=== PATIENT | male | born 1975 | race Hispanic/Latino ===

== ENCOUNTER 2018-02-04 07:22 | Emergency (ER) | payer BC ==
[2018-02-04] MEDS ORDERED: ONDANSETRON 4 MG/2 ML VIAL ONE (07:54)
[2018-02-04] MEDS ORDERED: NA CHLORIDE 0.9% 1,000 ML ONE (07:54)
[2018-02-04] MEDS ORDERED: MORPHINE 4 MG/ML SYR ONE (07:54)
[2018-02-04] MEDS ORDERED: FAMOTIDINE 20 MG/2 ML VIAL IV ONE (07:54)
[2018-02-04 08:00] LABS: Urine Bacteria <20 /HPF (NONE SEEN); Urine Culture Reflex Order NOT NEEDED; Urine RBC <5 /HPF (NONE SEEN)
[2018-02-04 08:13] LABS: Bicarbonate 28 mEq/L (21-31); Glucose Level 95 mg/dL (65-120); Lipase 25 U/L (22-51); Potassium 3.6 mEq/L (3.6-5.0); Sodium Level 142 mEq/L (135-145)
[2018-02-04 08:17] LABS: Absolute Lymphocytes (CBC) 2.1 K/uL (0.7-4.9); Absolute Monocytes 0.4 K/uL (0.1-1.3); Absolute Neutrophil 4.5 K/uL (1.8-8.0); Basophils % 0.4 % (0-1.3); Eosinophils % 1.4 % (0-4.4); Hematocrit 46.1 % (39.6-49.0); Lymphocytes % 29.5 % (15.3-44.8); MCH 30.8 pg (27.0-35.0); MCV 93.8 fL (80-100); MPV 9.6 fL (7.6-11.3); Monocytes % 5.9 % (3.3-12.3); RBC Red Blood Cell Count 4.92 M/uL (4.33-5.43)
[2018-02-04 08:19] LABS: ALT/SGPT 62 IU/L (10-60); AST/SGOT 40 IU/L (10-42); Albumin 4.4 g/dL (3.2-5.5); Alkaline Phosphatase 65 IU/L (42-121); Amylase Level 87 U/L (28-100); BUN Blood Urea Nitrogen 17 mg/dL (6-20); Bilirubin Direct 0.1 mg/dL (0-0.2); Bilirubin Total 0.7 mg/dL (0.3-1.2); Protein, Total 7.6 g/dL (6.0-8.3)
[2018-02-04] MEDS ORDERED: KETOROLAC 30 MG/ML INJ ONE (09:03)
[2018-02-04] MEDS ORDERED: CYCLOBENZAPRINE 10 MG TAB ONE (09:03)
--- NOTE | 2018-02-04 09:36 | RAD REPORT ---
EXAM DESCRIPTION: CT - Abdomen Pelvis W Contrast - 02/04/2018 9:23 am CLINICAL HISTORY: Back pain, chest pain, abdominal pain COMPARISON: June 2013 CT imaging, gallbladder ultrasound same date TECHNIQUE: Biphasic, helical CT imaging of the abdomen and pelvis was performed following 100 ml non -ionic IV contrast. No oral contrast administered. All CT scans are performed using dose optimization technique as appropriate and may include automated exposure control or mA/KV adjustment according to patient size. FINDINGS: No suspicious findings in the lung bases. The liver, spleen, and pancreas show no focal findings. Liver shows diffuse fatty infiltration patter n. No gallbladder or biliary tree abnormality. Gallstones can be occult; however, same-day ultrasound showed no gallstones. Symmetric renal function is seen with no hydronephrosis or suspicious renal mass. No pyelonephritis o r acute renal parenchymal process identifiable. No adrenal gland abnormalities. No urinary bladder ab normality. No dilated bowel loops or bowel wall thickening. Appendix is normal. No free air, free fluid or infla mmatory stranding. No mass or bulky lymphadenopathy. No omental thickening. Small bilateral fat fill ed inguinal hernias are present. No suspicious bony findings. IMPRESSION: Diffuse fatty infiltration of the liver with no focal liver lesion identifiable. No acute or GI process identifiable. No suspicious change from prior imaging.
--- NOTE | 2018-02-04 10:44 | ER ---
Nurse's Notes [facility] Name: Tapan Jaime Jr Age: 42 yrs Sex: Male : 1975 Arrival Date: 02/04/2018 Time: 07:25 Bed 19 Private MD: None, None Diagnosis: Upper abdominal pain, unspecified Presentation: 02/04 07:39 Presenting complaint: Patient states: twisted his back 3 days ago, has had pain under iw ribs on right side, RUQ tender to touch, denies vomiting, reports diarrhea, pain described as cramping. Transition of care: patient was not received from another setting of care. Onset of symptoms was February 01, 2018. Risk Assessment: Do you want to hurt yourself or someone else? Patient reports no desire to harm self or others. Initial Sepsis Screen: Does the patient meet any 2 criteria? No. Patient's initial sepsis screen is negative. Does the patient have a suspected source of infection? No. Patient's initial sepsis screen is negative. Care prior to arrival: None. 07:39 Method Of Arrival: Ambulatory iw 07:39 Acuity: SANDEE 3 iw Historical: - Allergies: 07:35 NKDA; tw2 - PMHx: 07:35 Headaches; tw2 - Immunization history:: Adult Immunizations not up to date. - Social history:: Smoking status: Patient/guardian denies using tobacco. - Ebola Screening: : Patient denies travel to an Ebola-affected area in the 21 days before illness onset. Screenin:33 Abuse screen: Denies threats or abuse. Nutritional screening: No deficits noted. tw2 Tuberculosis screening: No symptoms or risk factors identified. Fall Risk None identified. Assessment: 07:45 General: Appears in no apparent distress. uncomfortable, Behavior is cooperative. Pain: em Complains of pain in right upper quadrant Pain radiates to right lateral anterior chest Pain currently is 10 out of 10 on a pain scale. Pain began 2-3 days ago. Neuro: Level of Consciousness is awake, alert, obeys commands, Oriented to person, place, time, situation. Cardiovascular: Capillary refill < 3 seconds Patient's skin is warm and dry. Respiratory: Airway is patent Respiratory effort is even, unlabored, Respiratory pattern is regular, symmetrical. GI: Abdomen is obese, Bowel sounds present X 4 quads. Abd is soft X 4 quads Abdomen is tender to palpation in right upper quadrant Reports diarrhea, Patient currently denies nausea, vomiting. : Urine is clear. EENT: No signs and/or symptoms were reported regarding the EENT system. Derm: Skin is intact, Skin is pink, warm \T\ dry. Musculoskeletal: Range of motion: intact in all extremities. 08:10 Reassessment: Patient appears in no apparent distress at this time. I agree with above iw assessment by César Segovia LVN. 08:58 Reassessment: Patient appears in no apparent distress at this time. Patient and/or em family updated on plan of care and expected duration. Pain level reassessed. Patient is alert, oriented x 3, equal unlabored respirations, skin warm/dry/pink. 10:00 Reassessment: Patient appears in no apparent distress at this time. Patient and/or em family updated on plan of care and expected duration. Pain level reassessed. Patient is alert, oriented x 3, equal unlabored respirations, skin warm/dry/pink. Patient states feeling better. 11:00 Reassessment: Patient appears in no apparent distress at this time. Patient and/or em family updated on plan of care and expected duration. Pain level reassessed. Patient is alert, oriented x 3, equal unlabored respirations, skin warm/dry/pink. Patient states feeling better. Patient states symptoms have improved. Vital Signs: 07:43 BP 141 / 71; Pulse 67; Resp 18 S; Temp 97.5; Pulse Ox 98% on R/A; Weight 145.15 kg; iw Height 5 ft. 10 in. (177.80 cm); Pain 10/10; 08:09 BP 139 / 73; Pulse 60; Resp 16; Pulse Ox 98% on R/A; em 08:58 BP 139 / 73; Pulse 66; Resp 16; Pulse Ox 96% on R/A; Pain 7/10; em 10:00 BP 121 / 72; Pulse 65; Resp 17; Pulse Ox 97% on R/A; Pain 5/10; em 11:00 BP 116 / 76; Pulse 79; Resp 16; Pulse Ox 99% on R/A; Pain 3/10; em 07:43 Body Mass Index 45.91 (145.15 kg, 177.80 cm) iw ED Course: 07:25 Patient arrived in ED. mr 07:26 None, None is Private Physician. mr 07:32 [facility] cp 07:32 Brendan Ponce MD is Attending Physician. cp 07:34 César Segovia LVN is Primary Nurse. em 07:34 Arm band placed on. tw2 07:34 Placed in gown. Bed in low position. Pulse ox on. NIBP on. tw2 07:42 Triage completed. iw 07:51 No provider procedures requiring assistance completed. Initial lab(s) drawn, by me, em sent to lab. Inserted saline lock: 20 gauge in right antecubital area, using aseptic technique. Blood collected. 08:41 Ultrasound completed. Patient tolerated well. Notified LEASE ADMINISTRATION ANALYST/RAFFY christina. sg3 08:59 Abdomen Exam Limited In Process Unspecified. EDMS 09:23 CT Abd/Pelvis - W/Contrast: no oral contrast In Process Unspecified. EDMS 09:23 CT completed. Patient tolerated procedure well. Patient moved back from CT. cw1 11:20 IV discontinued, intact, bleeding controlled, No redness/swelling at site. Pressure em dressing applied. Administered Medications: 08:03 Drug: Zofran 4 mg Route: IVP; Site: right antecubital; iw 08:57 Follow up: Response: No adverse reaction em 08:03 Drug: Pepcid 20 mg Route: IVP; Site: right antecubital; iw 08:57 Follow up: Response: No adverse reaction em 08:03 Drug: NS 0.9% 1000 ml Route: IV; Rate: 1 bolus; Site: right antecubital; iw 11:22 Follow up: IV Status: Completed infusion; IV Intake: 1000ml em 08:04 Drug: morphine 4 mg Route: IVP; Site: right antecubital; iw 08:57 Follow up: Response: No adverse reaction; Pain is decreased em 09:08 Drug: Flexeril 10 mg Route: PO; iw 10:36 Follow up: Response: No adverse reaction; Pain is decreased em 09:09 Drug: TORadol 30 mg Route: IVP; Site: right antecubital; iw 10:36 Follow up: Response: No adverse reaction em Intake: 11:22 IV: 1000ml; Total: 1000ml. em Outcome: 10:43 Discharge ordered by . cp 11:21 Discharged to home ambulatory. em 11:21 Condition: good 11:21 Discharge instructions given to patient, Instructed on discharge instructions, follow up and referral plans. no drinking with medication, no driving heavy equipment, medication usage. 11:23 Patient left the ED. em Signatures: Dispatcher [employer] Amarilis Cárdenas mr Segovia, César, TEACHER PUBLIC HEALTH TEACHER PUBLIC HEALTH em Asiya Lawson, RN RN jackeline Luo, Sandra cw1 Jeramie Best PA PA cp Wise, Tara, RN RN 2 Lolita Garland 3
--- NOTE | 2018-02-04 10:44 | EDPHYS ---
Physician Documentation [facility] Name: Tapan Jaime Jr Age: 42 yrs Sex: Male : 1975 Arrival Date: 02/04/2018 Time: 07:25 Bed 19 Private MD: None, None ED Physician Brendan Ponce HPI: 02/04 07:50 This 42 yrs old Male presents to ER via Ambulatory with complaints of cp Abdominal Pain. 07:50 The patient presents with abdominal pain in the right upper quadrant. Onset: The cp symptoms/episode began/occurred 3 day(s) ago. 07:50 Associated signs and symptoms: Pertinent positives: diarrhea, nausea, Pertinent cp negatives: chest pain, constipation, shortness of breath, testicular pain, vomiting. The symptoms are described as cramping. 07:50 Patient reports pain started while at work 3 days ago. Patient reports he was working cp above his head when he twisted and turned, started having pain in right lower rib area. Historical: - Allergies: 07:35 NKDA; tw2 - PMHx: 07:35 Headaches; tw2 - Immunization history:: Adult Immunizations not up to date. - Social history:: Smoking status: Patient/guardian denies using tobacco. - Ebola Screening: : Patient denies travel to an Ebola-affected area in the 21 days before illness onset. ROS: 08:00 Eyes: Negative for injury, pain, redness, and discharge. cp 08:00 Constitutional: Negative for body aches, chills, fever, poor PO intake. 08:00 ENT: Negative for drainage from ear(s), ear pain, sore throat, difficulty swallowing, cp difficulty handling secretions. 08:00 Cardiovascular: Negative for chest pain, edema, palpitations. 08:00 Respiratory: Negative for cough, shortness of breath, wheezing. 08:00 Abdomen/GI: Positive for abdominal pain, of the right upper quadrant. 08:00 Back: Positive for flank pain, on the right. cp 08:00 : Negative for urinary symptoms. cp 08:00 MS/extremity: Negative for paresthesias, tenderness. 08:00 Skin: Negative for cellulitis, rash. 08:00 Neuro: Negative for altered mental status, headache, weakness. 08:00 All other systems are negative. Exam: 08:15 Constitutional: The patient appears in no acute distress, alert, awake, cp non-diaphoretic, non-toxic, well developed, well nourished, obese. 08:15 Head/Face: Normocephalic, atraumatic. cp 08:15 Eyes: Pupils equal round and reactive to light, extra-ocular motions intact. Lids and cp lashes normal. Conjunctiva and sclera are non-icteric and not injected. Cornea within normal limits. Periorbital areas with no swelling, redness, or edema. ENT: Nares patent. No nasal discharge, no septal abnormalities noted. Tympanic membranes are normal and external auditory canals are clear. Oropharynx with no redness, swelling, or masses, exudates, or evidence of obstruction, uvula midline. Mucous membranes moist. Neck: Trachea midline, no thyromegaly or masses palpated, and no cervical lymphadenopathy. Supple, full range of motion without nuchal rigidity, or vertebral point tenderness. No Meningismus. 08:15 Chest/axilla: Inspection: normal, Palpation: crepitus, is not appreciated, tenderness, that is moderate, of the right lower lateral rib area, that partially reproduces the patient's complaints. 08:15 Cardiovascular: Rate: normal, Rhythm: regular, Edema: is not appreciated, JVD: is not appreciated. 08:15 Respiratory: the patient does not display signs of respiratory distress, Respirations: normal, no use of accessory muscles, no retractions, no splinting, no tachypnea, labored breathing, is not present, Breath sounds: are clear throughout, no decreased breath sounds, no stridor, no wheezing. 08:15 Abdomen/GI: Inspection: obese Bowel sounds: active, all quadrants, Palpation: soft, in all quadrants, moderate abdominal tenderness, in the right upper quadrant, rebound tenderness, is not appreciated, voluntary guarding, is elicited in the right upper quadrant. 08:15 Back: pain, that is mild, of the right mid back, ROM is normal, vertebral tenderness, is not appreciated. 08:15 Skin: cellulitis, is not appreciated, no rash present. cp 08:15 Neuro: Orientation: to person, place \T\ time. Mentation: lucid, able to follow commands, Cerebellar function: is grossly normal, Motor: moves all fours, strength is normal, Sensation: no obvious gross deficits, Gait: is steady. Vital Signs: 07:43 BP 141 / 71; Pulse 67; Resp 18 S; Temp 97.5; Pulse Ox 98% on R/A; Weight 145.15 kg; iw Height 5 ft. 10 in. (177.80 cm); Pain 10/10; 08:09 BP 139 / 73; Pulse 60; Resp 16; Pulse Ox 98% on R/A; em 08:58 BP 139 / 73; Pulse 66; Resp 16; Pulse Ox 96% on R/A; Pain 7/10; em 10:00 BP 121 / 72; Pulse 65; Resp 17; Pulse Ox 97% on R/A; Pain 5/10; em 11:00 BP 116 / 76; Pulse 79; Resp 16; Pulse Ox 99% on R/A; Pain 3/10; em 07:43 Body Mass Index 45.91 (145.15 kg, 177.80 cm) iw MDM: 07:33 Patient medically screened. cp 08:00 Differential diagnosis: cholecystitis, Cholelithiasis, pancreatitis, Pyelonephritis, cp Ureterolithiasis, urinary tract infection. 10:40 Data reviewed: vital signs, nurses notes, lab test result(s), radiologic studies, CT cp scan, ultrasound. Counseling: I had a detailed discussion with the patient and/or guardian regarding: the historical points, exam findings, and any diagnostic results supporting the discharge/admit diagnosis, lab results, radiology results, the need for outpatient follow up, a family practitioner, to return to the emergency department if symptoms worsen or persist or if there are any questions or concerns that arise at home. 02/04 07:42 Order name: Amylase, Serum; Complete Time: 08:55 cp 02/04 07:42 Order name: Basic Metabolic Panel; Complete Time: 08:55 cp 02/04 07:42 Order name: CBC with Diff; Complete Time: 08:55 cp 02/04 07:42 Order name: Creatinine for Radiology; Complete Time: 08:55 cp 02/04 07:42 Order name: Hepatic Function; Complete Time: 08:55 cp 02/04 10:26 Interpretation: Normal except: SGPT 62. cp 02/04 07:42 Order name: Lipase; Complete Time: 08:55 cp 02/04 07:42 Order name: Urine Microscopic Only; Complete Time: 08:55 cp 02/04 08:21 Order name: Abdomen Exam Limited EDMS 02/04 08:56 Order name: CT Abd/Pelvis - W/Contrast: no oral contrast; Complete Time: 10:24 cp 02/04 10:26 Interpretation: Report reviewed. 02/04 07:42 Order name: IV Saline Lock; Complete Time: 07:48 cp 02/04 07:42 Order name: Labs collected and sent; Complete Time: 07:48 cp 02/04 07:42 Order name: Urine Dipstick-Ancillary (obtain specimen); Complete Time: 07:48 cp 02/04 07:42 Order name: NPO; Complete Time: 07:48 cp Administered Medications: 08:03 Drug: Zofran 4 mg Route: IVP; Site: right antecubital; iw 08:57 Follow up: Response: No adverse reaction em 08:03 Drug: Pepcid 20 mg Route: IVP; Site: right antecubital; iw 08:57 Follow up: Response: No adverse reaction em 08:03 Drug: NS 0.9% 1000 ml Route: IV; Rate: 1 bolus; Site: right antecubital; iw 11:22 Follow up: IV Status: Completed infusion; IV Intake: 1000ml em 08:04 Drug: morphine 4 mg Route: IVP; Site: right antecubital; iw 08:57 Follow up: Response: No adverse reaction; Pain is decreased em 09:08 Drug: Flexeril 10 mg Route: PO; iw 10:36 Follow up: Response: No adverse reaction; Pain is decreased em 09:09 Drug: TORadol 30 mg Route: IVP; Site: right antecubital; iw 10:36 Follow up: Response: No adverse reaction em Disposition: 02/04/18 10:43 Discharged to Home. Impression: Upper abdominal pain, unspecified. - Condition is Stable. - Discharge Instructions: Abdominal Pain, Adult, Musculoskeletal Pain. - Prescriptions for Cyclobenzaprine 10 mg Oral Tablet - take 1 tablet by ORAL route every 8 hours As needed; 20 tablet. Naprosyn 500 mg Oral Tablet - take 1 tablet by ORAL route 2 times per day take with food; 30 tablet. - Work release form, Medication Reconciliation Form, Thank You Letter, Antibiotic Education, Prescription Opioid Use form. - Follow up: Private Physician; When: 2 - 3 days; Reason: Recheck today's complaints. - Problem is new. - Symptoms have improved. Addendum: 02/12/2018 11:51 Co-signature as Attending Physician, Brendan Ponce MD Available for consultation at p s1 all times. . Signatures: Dispatcher [employer] EDVT César Segovia, CONSULTING MARINE ENGINEER CONSULTING MARINE ENGINEER em Asiya Lawson, RN RN iw Jeramie Best PA PA cp Wise, Tara, RN RN tw2 Brendan Ponce MD MD ps1 Corrections: (The following items were deleted from the chart) 02/04 07:58 07:50 Associated signs and symptoms: Pertinent positives: nausea, Pertinent negatives: cp chest pain, constipation, diarrhea, fever, hematuria, testicular pain, vomiting, cp 08:21 07:42 Abdomen Complete+US.RAD.BRZ ordered. EDVT EDVT 10:41 07:15 Constitutional: The patient appears in no acute distress, alert, awake, cp non-diaphoretic, non-toxic, well developed, well nourished, obese, uncomfortable, cp 10:41 07:15 Head/Face: Normocephalic, atraumatic. Eyes: Pupils equal round and reactive to cp light, extra-ocular motions intact. Lids and lashes normal. Conjunctiva and sclera are non-icteric and not injected. Cornea within normal limits. Periorbital areas with no swelling, redness, or edema. ENT: Nares patent. No nasal discharge, no septal abnormalities noted. Tympanic membranes are normal and external auditory canals are clear. Oropharynx with no redness, swelling, or masses, exudates, or evidence of obstruction, uvula midline. Mucous membranes moist. Chest/axilla: Normal chest wall appearance and motion. Nontender with no deformity. No lesions are appreciated. cp 10:41 07:15 Cardiovascular: Rate: normal, Rhythm: regular, Edema: is not appreciated, JVD: is cp not appreciated, cp 10:41 07:15 Respiratory: the patient does not display signs of respiratory distress, cp Respirations: normal, no use of accessory muscles, no retractions, no splinting, no tachypnea, Breath sounds: are clear throughout, no decreased breath sounds, no stridor, no wheezing, cp 10:41 07:15 Abdomen/GI: Inspection: obese Bowel sounds: active, all quadrants, Palpation: cp soft, in all quadrants, moderate abdominal tenderness, in the right upper quadrant, rebound tenderness, is not appreciated, voluntary guarding, is elicited in the right upper quadrant, cp 10:41 07:15 Back: pain, that is mild, of the right mid back, cp cp 10:41 07:15 Skin: cellulitis, is not appreciated, no rash present. cp cp 11:23 10:43 02/04/2018 10:43 Discharged to Home. Impression: Upper abdominal pain, em unspecified. Condition is Stable. Forms are Medication Reconciliation Form, Thank You Letter, Antibiotic Education, Prescription Opioid Use. Follow up: Private Physician; When: 2 - 3 days; Reason: Recheck today's complaints. Problem is new. Symptoms have improved. cp
[2018-02-04 11:28] VITALS: TEMP 97.5
--- NOTE | 2018-02-04 11:28 | RAD REPORT ---
EXAM DESCRIPTION: US - Abdomen Exam Limited - 02/04/2018 8:59 am CLINICAL HISTORY: Right upper quadrant pain COMPARISON: None. FINDINGS: No gallstones, sludge or other abnormalities within the gallbladder lumen. There is no wal l thickening or pericholecystic fluid. Gallbladder assessment is limited due to large body habitus an d liver fatty infiltration pattern. No common duct stone or biliary tree dilatation identified. IMPRESSION: Normal gallbladder and biliary tree ultrasound. Exam is limited due to large body habit us and fatty infiltration of the liver.
[2018-02-04 11:32] VITALS: BP 116/76; O2SAT 99
== END 2018-02-04 11:23 | disposition home or self-care (01) ==
LOC: ER 07:22
DX: R10.11 Right upper quadrant pain (principal)
CPT/HCPCS: 36415; 74177; 76705; 80048; 80076; 81015; 82150; 83690; 85025; 96361; 96374; 96375; 99284; J2405; J7030; Q9967

== ENCOUNTER 2018-06-07 10:56 | Emergency (ER) | payer BC ==
--- NOTE | 2018-06-07 12:02 | EDPHYS ---
Physician Documentation [facility] Name: Tapan Jaime Jr Age: 42 yrs Sex: Male : 1975 Arrival Date: 06/07/2018 Time: 10:58 Bed 28 Private MD: None, None ED Physician Blaze Harris HPI: 06/07 11:45 This 42 yrs old Male presents to ER via Ambulatory with complaints of Sore pm1 throat. 11:45 The patient presents with sore throat. The patient describes throat pain as constant, pm1 raw, scratchy. 11:45 Onset: The symptoms/episode began/occurred 3 day(s) ago. Severity of symptoms: in the pm1 emergency department the symptoms are actually worse. Modifying factors: The symptoms are alleviated by nothing, the symptoms are aggravated by swallowing, Patient's oral intake status: good. Associated signs and symptoms: Pertinent positives: fever, flu-like symptoms, myalgias, Pertinent negatives cough, shortness of breath, chest pain. The patient has experienced similar episodes in the past, multiple times. Historical: - Allergies: 11:02 NKDA; aj1 - Home Meds: 11:02 Pepcid 20 mg Oral tab 1 tab once daily [Active]; aj1 - PMHx: 11:02 Headaches; aj1 - PSHx: 11:02 None; aj1 - Immunization history:: Flu vaccine is not up to date. - Social history:: Smoking status: Patient/guardian denies using tobacco. - Ebola Screening: : Patient denies travel to an Ebola-affected area in the 21 days before illness onset. ROS: 11:45 Eyes: Negative for injury, pain, redness, and discharge. pm1 11:45 Neck: Negative for injury, pain, and swelling, Cardiovascular: Negative for chest pain, palpitations, and edema, Respiratory: Negative for shortness of breath, cough, wheezing, and pleuritic chest pain, Abdomen/GI: Negative for abdominal pain, nausea, vomiting, diarrhea, and constipation, Back: Negative for injury and pain, MS/Extremity: Negative for injury and deformity, Skin: Negative for injury, rash, and discoloration, Neuro: Negative for headache, weakness, numbness, tingling, and seizure. 11:45 Constitutional: Positive for body aches, fever, Negative for poor PO intake. 11:45 ENT: Positive for sore throat, Negative for drainage from ear(s), ear pain. Exam: 11:45 Constitutional: This is a well developed, well nourished patient who is awake, alert, pm1 and in no acute distress. Head/Face: Normocephalic, atraumatic. Eyes: Pupils equal round and reactive to light, extra-ocular motions intact. Lids and lashes normal. Conjunctiva and sclera are non-icteric and not injected. Cornea within normal limits. Periorbital areas with no swelling, redness, or edema. 11:45 Neck: Trachea midline, no thyromegaly or masses palpated, and no cervical lymphadenopathy. Supple, full range of motion without nuchal rigidity, or vertebral point tenderness. No Meningismus. Chest/axilla: Normal chest wall appearance and motion. Nontender with no deformity. No lesions are appreciated. Cardiovascular: Regular rate and rhythm with a normal S1 and S2. No gallops, murmurs, or rubs. Normal PMI, no JVD. No pulse deficits. Respiratory: Lungs have equal breath sounds bilaterally, clear to auscultation and percussion. No rales, rhonchi or wheezes noted. No increased work of breathing, no retractions or nasal flaring. Abdomen/GI: Soft, non-tender, with normal bowel sounds. No distension or tympany. No guarding or rebound. No evidence of tenderness throughout. Back: No spinal tenderness. No costovertebral tenderness. Full range of motion. Skin: Warm, dry with normal turgor. Normal color with no rashes, no lesions, and no evidence of cellulitis. MS/ Extremity: Pulses equal, no cyanosis. Neurovascular intact. Full, normal range of motion. 11:45 ENT: External ear(s): are unremarkable, Ear canal(s): are normal, TM's: are normal, Nose: is normal, Mouth: is normal, Posterior pharynx: Tonsils: bilaterally enlarged, with erythema, no exudate, no ulcerations, peritonsillar mass, is not appreciated, pooling of secretions, is not appreciated. 11:45 Neuro: Orientation: is normal, Motor: is normal, moves all fours. Vital Signs: 11:02 BP 170 / 82; Pulse 86; Resp 18; Temp 98.9(TE); Pulse Ox 98% on R/A; Weight 136.08 kg aj1 (R); Height 6 ft. 0 in. (182.88 cm) (R); Pain 03/20; 11:02 Body Mass Index 40.69 (136.08 kg, 182.88 cm) aj1 MDM: 11:45 Patient medically screened. pm1 12:01 Data reviewed: vital signs. Data interpreted: Pulse oximetry: on room air is 98 %. pm1 Interpretation: normal. Counseling: I had a detailed discussion with the patient and/or guardian regarding: the historical points, exam findings, and any diagnostic results supporting the discharge/admit diagnosis, lab results, the need for outpatient follow up, to return to the emergency department if symptoms worsen or persist or if there are any questions or concerns that arise at home. 06/07 11:04 Order name: Flu; Complete Time: 11:45 aj1 06/07 11:04 Order name: Strep; Complete Time: :45 aj1 Administered Medications: No medications were administered Disposition: 12:34 Co-signature as Attending Physician, Blaze Harris MD. rn Disposition: 06/07/18 12:01 Discharged to Home. Impression: Streptococcal pharyngitis. - Condition is Stable. - Discharge Instructions: Strep Throat. - Prescriptions for Amoxicillin 500 mg Oral Capsule - take 1 capsule by ORAL route every 8 hours for 10 days; 30 tablet. - Work release form, Medication Reconciliation Form, Thank You Letter, Antibiotic Education, Prescription Opioid Use form. - Follow up: Emergency Department; When: As needed; Reason: Worsening of condition. Follow up: Private Physician; When: 2 - 3 days; Reason: Recheck today's complaints, Continuance of care, Re-evaluation by your physician. - Problem is new. - Symptoms have improved. Signatures: Dispatcher [employer] Esthela Simmons RN RN aj1 Asiya Lawson RN RN iw Nieto, Roman, MD MD rn Marinas, Patrick, SE[employer] PRESCHO[employer] ASSISTANT TEACHER pm1 Corrections: (The following items were deleted from the chart) 12:10 12:01 06/07/2018 12:01 Discharged to Home. Impression: Streptococcal pharyngitis. iw Condition is Stable. Forms are Medication Reconciliation Form, Thank You Letter, Antibiotic Education, Prescription Opioid Use. Follow up: Emergency Department; When: As needed; Reason: Worsening of condition. Follow up: Private Physician; When: 2 - 3 days; Reason: Recheck today's complaints, Continuance of care, Re-evaluation by your physician. Problem is new. Symptoms have improved. pm1
--- NOTE | 2018-06-07 12:02 | ER ---
Nurse's Notes [facility] Name: Tapan Jaime Jr Age: 42 yrs Sex: Male : 1975 Arrival Date: 06/07/2018 Time: 10:58 Bed 28 Private MD: None, None Diagnosis: Streptococcal pharyngitis Presentation: 06/07 11:00 Presenting complaint: Patient states: Joint aches, headache, congestion, cough, and aj1 sore throat for the past 3 days. Transition of care: patient was not received from another setting of care. Onset of symptoms was June 04, 2018. Risk Assessment: Do you want to hurt yourself or someone else? Patient reports no desire to harm self or others. Initial Sepsis Screen: Does the patient meet any 2 criteria? No. Patient's initial sepsis screen is negative. Does the patient have a suspected source of infection? No. Patient's initial sepsis screen is negative. Care prior to arrival: None. 11:00 Method Of Arrival: Ambulatory aj1 11:00 Acuity: SANDEE 4 aj1 Triage Assessment: 11:02 General: Appears in no apparent distress. uncomfortable, Behavior is calm, cooperative, aj1 appropriate for age. Pain: Complains of pain in pain in all joints Pain currently is 8 out of 10 on a pain scale. EENT: Reports nasal congestion nasal discharge sore throat. Neuro: Level of Consciousness is awake, alert, obeys commands. Cardiovascular: Patient's skin is warm and dry. Respiratory: Airway is patent Respiratory effort is even, unlabored, Respiratory pattern is regular, symmetrical, Parent/caregiver reports the patient having cough that is. Historical: - Allergies: 11:02 NKDA; aj1 - Home Meds: 11:02 Pepcid 20 mg Oral tab 1 tab once daily [Active]; aj1 - PMHx: 11:02 Headaches; aj1 - PSHx: 11:02 None; aj1 - Immunization history:: Flu vaccine is not up to date. - Social history:: Smoking status: Patient/guardian denies using tobacco. - Ebola Screening: : Patient denies travel to an Ebola-affected area in the 21 days before illness onset. Screenin:09 Abuse screen: Denies threats or abuse. Denies injuries from another. Nutritional iw screening: No deficits noted. Tuberculosis screening: No symptoms or risk factors identified. Fall Risk None identified. Assessment: 12:00 General: Appears in no apparent distress. Behavior is calm, cooperative. Pain: iw Complains of pain in throat. Neuro: Level of Consciousness is awake, alert, obeys commands, Oriented to person, place, time, situation, Moves all extremities. Full function. Cardiovascular: Patient's skin is warm and dry. Respiratory: Respiratory effort is even, unlabored, Respiratory pattern is regular, symmetrical. EENT: Throat is reddened bilaterally. Derm: Skin is intact, is healthy with good turgor. Musculoskeletal: Range of motion: intact in all extremities. Vital Signs: 11:02 BP 170 / 82; Pulse 86; Resp 18; Temp 98.9(TE); Pulse Ox 98% on R/A; Weight 136.08 kg aj1 (R); Height 6 ft. 0 in. (182.88 cm) (R); Pain 7/10; 11:02 Body Mass Index 40.69 (136.08 kg, 182.88 cm) aj1 ED Course: 10:58 Patient arrived in ED. sb2 10:59 None, None is Private Physician. sb2 11:02 Triage completed. aj1 11:02 Arm band placed on Patient placed in waiting room, Patient notified of wait time. aj1 11:05 Patient has correct armband on for positive identification. iw 11:44 Sagar Fox NP is PHCP. pm1 11:44 Blaze Harris MD is Attending Physician. pm1 11:46 Asiya Lawson RN is Primary Nurse. iw 12:09 No provider procedures requiring assistance completed. Patient did not have IV access iw during this emergency room visit. Administered Medications: No medications were administered Outcome: 12:01 Discharge ordered by . pm1 12:09 Discharged to home ambulatory. iw 12:09 Condition: good 12:09 Discharge instructions given to patient, Instructed on discharge instructions, follow up and referral plans. medication usage, Demonstrated understanding of instructions, follow-up care, medications, Prescriptions given X 1. 12:10 Patient left the ED. iw Signatures: Esthela Cruz RN RN aj1 Asiya Lawson RN RN iw Sagar Fox NP GIS DEVELOPER pm1 Radha Garcia sb2
[2018-06-07 12:14] VITALS: BP 170/82; TEMP 98.9; O2SAT 98
== END 2018-06-07 12:10 | disposition home or self-care (01) ==
LOC: ER 10:56
DX: J02.0 Streptococcal pharyngitis (principal)
CPT/HCPCS: 87081; 87804; 99282

== ENCOUNTER 2019-07-04 08:21 | Emergency (ER) | payer BC, SELFPAY ==
--- NOTE | 2019-07-04 09:29 | ER ---
Nurse's Notes [facility] Name: Tapan Jaime Jr Age: 43 yrs Sex: Male : 1975 Arrival Date: 07/04/2019 Time: 08:24 Bed 15 Private MD: None, None Diagnosis: Streptococcal pharyngitis Presentation: 07/04 08:43 Presenting complaint: Patient states: productive cough, headache, muscle aches, sinus iw pressure since yesterday afternoon. Transition of care: patient was not received from another setting of care. Onset of symptoms was July 03, 2019. Risk Assessment: Do you want to hurt yourself or someone else? Patient reports no desire to harm self or others. Initial Sepsis Screen: Does the patient meet any 2 criteria? No. Patient's initial sepsis screen is negative. Does the patient have a suspected source of infection? No. Patient's initial sepsis screen is negative. Care prior to arrival: None. 08:43 Method Of Arrival: Ambulatory iw 08:43 Acuity: SANDEE 4 iw Triage Assessment: 08:40 Headache History: The patient has had previous headaches and this one is similar to rb1 previous episodes. General: Appears in no apparent distress. comfortable, Behavior is calm, cooperative. Pain: Complains of pain in bodyaches Pain currently is 9 out of 10 on a pain scale. Pain began 1 day ago. Also complains of no other associated symptoms. Historical: - Allergies: 08:44 NKDA; iw - Home Meds: 08:44 None [Active]; iw - PMHx: 08:44 Headaches; iw - PSHx: 08:44 None; iw - Immunization history:: Adult Immunizations not up to date. - Social history:: Smoking status: Patient/guardian denies using tobacco. - Ebola Screening: : Patient negative for fever greater than or equal to 101.5 degrees Fahrenheit, and additional compatible Ebola Virus Disease symptoms Patient denies exposure to infectious person Patient denies travel to an Ebola-affected area in the 21 days before illness onset No symptoms or risks identified at this time. Screenin:40 Abuse screen: Denies threats or abuse. Nutritional screening: No deficits noted. rb1 Tuberculosis screening: No symptoms or risk factors identified. Fall Risk None identified. Assessment: 08:40 General: Appears in no apparent distress. comfortable, Behavior is calm, cooperative, rb1 Denies fever. Pain: Complains of pain in body aches. Neuro: Level of Consciousness is awake, alert, obeys commands, Oriented to person, place, time, situation. Cardiovascular: Capillary refill < 3 seconds is brisk in bilateral fingers. Respiratory: Reports cough that is productive, Airway is patent Respiratory effort is even, unlabored, Respiratory pattern is regular, symmetrical. GI: No signs and/or symptoms were reported involving the gastrointestinal system. : No signs and/or symptoms were reported regarding the genitourinary system. Derm: Skin is pink, warm \T\ dry. 09:40 Reassessment: Patient appears in no apparent distress at this time. No changes from rb1 previously documented assessment. Vital Signs: 08:44 BP 146 / 100; Pulse 72; Resp 18 S; Temp 98.0; Pulse Ox 98% on R/A; Weight 136.08 kg; iw Height 6 ft. 0 in. (182.88 cm); Pain 9/10; 09:38 BP 140 / 109; Pulse 75; Resp 19; Pulse Ox 99% on R/A; rb1 08:44 Body Mass Index 40.69 (136.08 kg, 182.88 cm) iw ED Course: 08:24 Patient arrived in ED. ag5 08:24 None, None is Private Physician. ag5 08:29 Addis Jacques F[facility]-C is [facility]. kb 08:29 Raffi Colindres MD is Attending Physician. kb 08:40 Patient has correct armband on for positive identification. Bed in low position. Call rb1 light in reach. Side rails up X 1. Pulse ox on. NIBP on. 08:41 Lexus Stark, RN is Primary Nurse. rb1 08:43 Triage completed. iw 08:44 Arm band placed on. iw 09:42 No provider procedures requiring assistance completed. Patient did not have IV access rb1 during this emergency room visit. Administered Medications: 09:40 Drug: Augmentin 875 mg Route: PO; rb1 09:42 Follow up: Response: Medication administered at discharge. rb1 Outcome: 09:28 Discharge ordered by . kb 09:42 Patient left the ED. rb1 09:42 Discharged to home ambulatory. rb1 09:42 Condition: stable 09:42 Discharge instructions given to patient, Instructed on discharge instructions, follow up and referral plans. medication usage, Demonstrated understanding of instructions, follow-up care, medications, Prescriptions given X 1. Signatures: Addis Jacques, AURELIO MARTINEZ-Asiya Cochran, RN RN iw Lexus Stark RN RN rb1 Anne Decker ag5
--- NOTE | 2019-07-04 09:29 | EDPHYS ---
Physician Documentation [facility] Name: Tapan Jaime Jr Age: 43 yrs Sex: Male : 1975 Arrival Date: 07/04/2019 Time: 08:24 Bed 15 Private MD: None, None ED Physician Raffi Colindres HPI: 07/04 08:56 This 43 yrs old Male presents to ER via Ambulatory with complaints of Cough, kb Headache, Pain All Over. 08:56 The patient or guardian reports cough, that is intermittent, described as moderate, kb with no sputum, flu symptoms, myalgias. Onset: The symptoms/episode began/occurred yesterday. Severity of symptoms: At their worst the symptoms were moderate, in the emergency department the symptoms are unchanged. Modifying factors: The symptoms are alleviated by nothing, the symptoms are aggravated by nothing. Associated signs and symptoms: The patient has no apparent associated signs or symptoms. The patient has not experienced similar symptoms in the past. The patient has not recently seen a physician. Pt reports headache, cough and muscle aches since 1800 yesterday. . Historical: - Allergies: 08:44 NKDA; iw - Home Meds: 08:44 None [Active]; iw - PMHx: 08:44 Headaches; iw - PSHx: 08:44 None; iw - Immunization history:: Adult Immunizations not up to date. - Social history:: Smoking status: Patient/guardian denies using tobacco. - Ebola Screening: : Patient negative for fever greater than or equal to 101.5 degrees Fahrenheit, and additional compatible Ebola Virus Disease symptoms Patient denies exposure to infectious person Patient denies travel to an Ebola-affected area in the 21 days before illness onset No symptoms or risks identified at this time. ROS: 08:56 ENT: Negative for injury, pain, and discharge, Neck: Negative for injury, pain, and kb swelling, Cardiovascular: Negative for chest pain, palpitations, and edema, Abdomen/GI: Negative for abdominal pain, nausea, vomiting, diarrhea, and constipation, Back: Negative for injury and pain, MS/Extremity: Negative for injury and deformity, Skin: Negative for injury, rash, and discoloration, Neuro: Negative for weakness, numbness, tingling, and seizure. +headache 08:56 Constitutional: Positive for body aches, malaise. 08:56 Respiratory: Positive for cough. Exam: 08:56 Constitutional: This is a well developed, well nourished patient who is awake, alert, kb and in no acute distress. Head/Face: Normocephalic, atraumatic. ENT: Nares patent. No nasal discharge, no septal abnormalities noted. Tympanic membranes are normal and external auditory canals are clear. Oropharynx with no redness, swelling, or masses, exudates, or evidence of obstruction, uvula midline. Mucous membranes moist. Neck: Trachea midline, no thyromegaly or masses palpated, and no cervical lymphadenopathy. Supple, full range of motion without nuchal rigidity, or vertebral point tenderness. No Meningismus. Chest/axilla: Normal chest wall appearance and motion. Nontender with no deformity. No lesions are appreciated. Cardiovascular: Regular rate and rhythm with a normal S1 and S2. No gallops, murmurs, or rubs. Normal PMI, no JVD. No pulse deficits. Respiratory: Lungs have equal breath sounds bilaterally, clear to auscultation and percussion. No rales, rhonchi or wheezes noted. No increased work of breathing, no retractions or nasal flaring. Abdomen/GI: Soft, non-tender, with normal bowel sounds. No distension or tympany. No guarding or rebound. No evidence of tenderness throughout. Skin: Warm, dry with normal turgor. Normal color with no rashes, no lesions, and no evidence of cellulitis. MS/ Extremity: Pulses equal, no cyanosis. Neurovascular intact. Full, normal range of motion. Neuro: Awake and alert, GCS 15, oriented to person, place, time, and situation. Cranial nerves II-XII grossly intact. Motor strength 5/5 in all extremities. Sensory grossly intact. Cerebellar exam normal. Normal gait. Vital Signs: 08:44 BP 146 / 100; Pulse 72; Resp 18 S; Temp 98.0; Pulse Ox 98% on R/A; Weight 136.08 kg; iw Height 6 ft. 0 in. (182.88 cm); Pain 9/10; 09:38 BP 140 / 109; Pulse 75; Resp 19; Pulse Ox 99% on R/A; rb1 08:44 Body Mass Index 40.69 (136.08 kg, 182.88 cm) iw MDM: 08:36 Patient medically screened. kb 08:58 Data reviewed: vital signs, nurses notes. Data interpreted: Pulse oximetry: on room air kb is 98 %. Interpretation: normal. 09:28 Counseling: I had a detailed discussion with the patient and/or guardian regarding: the kb historical points, exam findings, and any diagnostic results supporting the discharge/admit diagnosis, lab results, the need for outpatient follow up, a family practitioner, to return to the emergency department if symptoms worsen or persist or if there are any questions or concerns that arise at home. 07/04 08:41 Order name: Flu; Complete Time: 09:27 kb 07/04 08:41 Order name: Strep; Complete Time: 09:13 kb Administered Medications: 09:40 Drug: Augmentin 875 mg Route: PO; rb1 09:42 Follow up: Response: Medication administered at discharge. rb1 Disposition: 12:44 Co-signature as Attending Physician, Raffi Colindres MD I agree with the assessment and kdr plan of care. Disposition: 07/04/19 09:28 Discharged to Home. Impression: Streptococcal pharyngitis. - Condition is Stable. - Discharge Instructions: Strep Throat, [id number]. - Prescriptions for Augmentin 875- 125 mg Oral Tablet - take 1 tablet by ORAL route every 12 hours for 10 days; 20 tablet. - Medication Reconciliation Form, Thank You Letter, Antibiotic Education, Prescription Opioid Use, Work release form form. - Follow up: Private Physician; When: 2 - 3 days; Reason: Recheck today's complaints, Continuance of care, Re-evaluation by your physician. Follow up: Emergency Department; When: As needed; Reason: Worsening of condition. Signatures: Dispatcher [employer] EDAddis Atkins, CONTROLLER COAL OR ORE-C CONTROLLER COAL OR ORE-Ckb Raffi Colindres MD MD [facility] Asiya Lawson, KATHLEEN RN iw Lexus Stark, KATHLEEN RN rb1 Corrections: (The following items were deleted from the chart) 09:42 09:28 07/04/2019 09:28 Discharged to Home. Impression: Streptococcal pharyngitis. rb1 Condition is Stable. Forms are Medication Reconciliation Form, Thank You Letter, Antibiotic Education, Prescription Opioid Use. Follow up: Private Physician; When: 2 - 3 days; Reason: Recheck today's complaints, Continuance of care, Re-evaluation by your physician. Follow up: Emergency Department; When: As needed; Reason: Worsening of condition. kb
[2019-07-04] MEDS ORDERED: AMOX/K CLAV 875 MG TAB ONE (09:38)
[2019-07-04 10:05] VITALS: BP 146/100; TEMP 98; O2SAT 98
== END 2019-07-04 09:42 | disposition home or self-care (01) ==
LOC: ER 08:21
DX: J02.0 Streptococcal pharyngitis (principal); R51 Headache
CPT/HCPCS: 87081; 87804; 99283

== ENCOUNTER 2019-07-10 05:22 | Emergency (ER) | payer SELFPAY ==
--- NOTE | 2019-07-10 06:51 | EDPHYS ---
Physician Documentation [facility] Name: Tapan Jaime Jr Age: 43 yrs Sex: Male : 1975 Arrival Date: 07/10/2019 Time: 05:24 Bed 14 Private MD: ED Physician Hammad Montiel HPI: 07/10 06:07 This 43 yrs old Male presents to ER via Ambulatory with complaints of Sore jr8 Throat, Cough, Sinus Pain. 06:07 Onset: The symptoms/episode began/occurred last week. Severity of symptoms: At their jr8 worst the symptoms were mild. Modifying factors: Patient's oral intake status: good. Associated signs and symptoms: Pertinent positives: flu-like symptoms, rhinorrhea, sinus pressure. Pt reports being on last couple days of augmentin for strep throat but having worsening cough and sinus pain. . Historical: - Allergies: 05:36 NKDA; jd3 - Home Meds: 05:36 None [Active]; jd3 - PMHx: 05:36 None; jd3 - PSHx: 05:36 None; jd3 - Immunization history:: Adult Immunizations unknown. - Social history:: Smoking status: Patient/guardian denies using tobacco, but has a distant history of tobacco abuse. - Ebola Screening: : Patient negative for fever greater than or equal to 101.5 degrees Fahrenheit, and additional compatible Ebola Virus Disease symptoms. ROS: 06:07 Constitutional: Negative for fever, chills, and weight loss, Eyes: Negative for injury, jr8 pain, redness, and discharge, ENT: Negative for injury, pain, and discharge, Cardiovascular: Negative for chest pain, palpitations, and edema, Respiratory: + cough and plueritc pain Abdomen/GI: Negative for abdominal pain, nausea, vomiting, diarrhea, and constipation, Back: Negative for injury and pain, Skin: Negative for injury, rash, and discoloration, Neuro: Negative for headache, weakness, numbness, tingling, and seizure. Exam: 06:11 Constitutional: This is a well developed, well nourished patient who is awake, alert, jr8 and in no acute distress. Head/Face: Normocephalic, atraumatic. Eyes: Pupils equal round and reactive to light, extra-ocular motions intact. Lids and lashes normal. Conjunctiva and sclera are non-icteric and not injected. Cornea within normal limits. Periorbital areas with no swelling, redness, or edema. ENT: Nares patent. No nasal discharge, no septal abnormalities noted. Tympanic membranes are normal and external auditory canals are clear. Oropharynx with no redness, swelling, or masses, exudates, or evidence of obstruction, uvula midline. Mucous membranes moist. + SKYLER sinus tenderness Neck: Trachea midline, no thyromegaly or masses palpated, and no cervical lymphadenopathy. Supple, full range of motion without nuchal rigidity, or vertebral point tenderness. No Meningismus. Chest/axilla: Normal chest wall appearance and motion. Nontender with no deformity. No lesions are appreciated. Cardiovascular: Regular rate and rhythm with a normal S1 and S2. No gallops, murmurs, or rubs. Normal PMI, no JVD. No pulse deficits. Respiratory: Lungs have equal breath sounds bilaterally, clear to auscultation and percussion. No rales, rhonchi or wheezes noted. No increased work of breathing, no retractions or nasal flaring. Abdomen/GI: Soft, non-tender, with normal bowel sounds. No distension or tympany. No guarding or rebound. No evidence of tenderness throughout. Vital Signs: 05:36 BP 139 / 94; Pulse 78; Resp 19 S; Temp 97.7(O); Pulse Ox 97% on R/A; Weight 136.08 kg jd3 (R); Height 6 ft. 0 in. (182.88 cm) (R); Pain 9/10; 06:57 BP 124 / 81; Pulse 60; Resp 17 S; Pulse Ox 95% on R/A; jd3 05:36 Body Mass Index 40.69 (136.08 kg, 182.88 cm) jd3 MDM: 05:54 Patient medically screened. jr8 06:46 Data reviewed: vital signs, nurses notes, radiologic studies, plain films, and as a jr8 result, I will discharge patient. Data interpreted: Pulse oximetry: on room air is 97 %. Interpretation: normal. Counseling: I had a detailed discussion with the patient and/or guardian regarding: the historical points, exam findings, and any diagnostic results supporting the discharge/admit diagnosis, the presence of at least one elevated blood pressure reading (>120/80) during this emergency department visit, radiology results, the need for outpatient follow up, a family practitioner. ED course: Possible early pneumonia on chest x-ray with worsening productive cough and pleuritic pain with inspiration. Discussed need for follow up and return precautions. 07/10 06:04 Order name: XRAY Chest (1 view) keith Administered Medications: No medications were administered Disposition: 07:16 Co-signature as Attending Physician, Hammad Montiel MD I agree with the assessment and tw4 plan of care. Disposition: 07/10/19 06:49 Discharged to Home. Impression: Pneumonia due to other specified bacteria, Cough, Acute sinusitis. - Condition is Stable. - Discharge Instructions: Community-Acquired Pneumonia, Adult, Sinusitis, Adult, Cough, Adult. - Prescriptions for Tessalon Perles 100 mg Oral Capsule - take 1 capsule by ORAL route every 8 hours As needed; 15 capsule. Zithromax Z- Marcelino 250 mg Oral Tablet - take 1 tablet by ORAL route as directed for 5 days Day 1 - take two (2) tablets one time. Day 2, 3, 4 , 5 take one (1) tablet once daily.; 6 tablet. Medrol (Marcelino) 4 mg Oral Tablets, Dose Pack - take 1 tablet by ORAL route as directed - follow package instructions; 1 packet. - Medication Reconciliation Form, Thank You Letter, Antibiotic Education form. - Follow up: Private Physician; When: 2 - 3 days; Reason: Recheck today's complaints, Re-evaluation by your physician. - Problem is new. - Symptoms are unchanged. Signatures: Dispatcher [employer] EDMS Warren Edmondson PA PA jr8 Alvarado Isaac RN RN jd3 Wadley, Terrence, MD MD tw4 Corrections: (The following items were deleted from the chart) 06:58 06:49 07/10/2019 06:49 Discharged to Home. Impression: Pneumonia due to other specified jd3 bacteria; Cough; Acute sinusitis. Condition is Stable. Forms are Medication Reconciliation Form, Thank You Letter, Antibiotic Education, Prescription Opioid Use. Follow up: Private Physician; When: 2 - 3 days; Reason: Recheck today's complaints, Re-evaluation by your physician. Problem is new. Symptoms are unchanged. jr8
--- NOTE | 2019-07-10 06:51 | ER ---
Nurse's Notes [facility] Name: Tapan Jaime Jr Age: 43 yrs Sex: Male : 1975 Arrival Date: 07/10/2019 Time: 05:24 Bed 14 [facility] MD: Diagnosis: Pneumonia due to other specified bacteria;Cough;Acute sinusitis Presentation: 07/10 05:33 Presenting complaint: Patient states: "I was seen here last week for strep throat and jd3 given antibiotics. I have felt like I have only gotten worse with my sinus pain and pain in my throat.". Transition of care: patient was not received from another setting of care. Onset of symptoms was July 03, 2019. Risk Assessment: Do you want to hurt yourself or someone else? Patient reports no desire to harm self or others. Initial Sepsis Screen: Does the patient meet any 2 criteria? No. Patient's initial sepsis screen is negative. Does the patient have a suspected source of infection? No. Patient's initial sepsis screen is negative. Care prior to arrival: None. 05:33 Method Of Arrival: Ambulatory jd3 05:33 Acuity: SANDEE 4 jd3 Historical: - Allergies: 05:36 NKDA; jd3 - Home Meds: 05:36 None [Active]; jd3 - PMHx: 05:36 None; jd3 - PSHx: 05:36 None; jd3 - Immunization history:: Adult Immunizations unknown. - Social history:: Smoking status: Patient/guardian denies using tobacco, but has a distant history of tobacco abuse. - Ebola Screening: : Patient negative for fever greater than or equal to 101.5 degrees Fahrenheit, and additional compatible Ebola Virus Disease symptoms. Screenin:39 Abuse screen: Denies threats or abuse. Nutritional screening: No deficits noted. jd3 Tuberculosis screening: No symptoms or risk factors identified. Fall Risk Ambulatory Aid- None/Bed Rest/Nurse Assist (0 pts). Gait- Normal/Bed Rest/Wheelchair (0 pts) Mental Status- Oriented to own ability (0 pts). Total Zuleta Fall Scale indicates No Risk (0-24 pts). Assessment: 05:37 General: Appears in no apparent distress. uncomfortable, Behavior is calm, cooperative, jd3 appropriate for age. Pain: Complains of pain in head and throat Quality of pain is described as aching, pressure. Neuro: Level of Consciousness is awake, alert, obeys commands, Oriented to person, place, time, situation. Cardiovascular: Capillary refill < 3 seconds Patient's skin is warm and dry. Respiratory: Reports cough that is productive, Airway is patent Respiratory effort is even, unlabored, Respiratory pattern is regular, symmetrical, Breath sounds are clear bilaterally. Denies shortness of breath. GI: Abdomen is round non-distended, Reports nausea, Patient currently denies abdominal pain, diarrhea. : No signs and/or symptoms were reported regarding the genitourinary system. EENT: Throat is clear is reddened. Derm: Skin is intact, Skin is dry, Skin is normal, Skin temperature is warm. Musculoskeletal: Circulation, motion, and sensation intact. Range of motion: intact in all extremities. 06:55 Reassessment: Patient appears in no apparent distress at this time. Patient and/or jd3 family updated on plan of care and expected duration. Pain level reassessed. Patient is alert, oriented x 3, equal unlabored respirations, skin warm/dry/pink. reported understanding of discharge instructions, even and steady gait upon discharge. Vital Signs: 05:36 BP 139 / 94; Pulse 78; Resp 19 S; Temp 97.7(O); Pulse Ox 97% on R/A; Weight 136.08 kg jd3 (R); Height 6 ft. 0 in. (182.88 cm) (R); Pain 9/10; 06:57 BP 124 / 81; Pulse 60; Resp 17 S; Pulse Ox 95% on R/A; jd3 05:36 Body Mass Index 40.69 (136.08 kg, 182.88 cm) jd3 ED Course: 05:24 Patient arrived in ED. ds1 05:33 Alvarado Isaac, RN is Primary Nurse. jd3 05:35 Triage completed. jd3 05:37 Arm band placed on. jd3 05:39 Patient has correct armband on for positive identification. Bed in low position. Call j light in reach. Side rails up X 1. 05:53 Warren Edmondson PA is PHCP. jr8 06:04 Hammad Montiel MD is Attending Physician. jr8 06:44 XRAY Chest (1 view) In Process Unspecified. EDMS 06:55 No provider procedures requiring assistance completed. Patient did not have IV access jd3 during this emergency room visit. Administered Medications: No medications were administered Outcome: 06:49 Discharge ordered by . keith 06:55 Discharged to home ambulatory. jd3 06:55 Condition: stable 06:55 Discharge instructions given to patient, Instructed on discharge instructions, follow up and referral plans. medication usage, Demonstrated understanding of instructions, follow-up care, medications, Prescriptions given X 3. 06:58 Patient left the ED. jd3 Signatures: Dispatcher [employer] EDCO Mayuri Allen ds1 Warren Edmondson PA PA jr8 Alvarado Isaac, RN RN jd3
[2019-07-10 07:04] VITALS: TEMP 97.7
[2019-07-10 07:05] VITALS: BP 124/81; O2SAT 95
--- NOTE | 2019-07-10 07:17 | RAD REPORT ---
EXAM DESCRIPTION: RAD - Chest Single View - 07/10/2019 6:43 am CLINICAL HISTORY: COUGH Chest pain. COMPARISON: Chest Pa And Lat (2 Views) dated 08/28/2017; Chest Pa And Lat (2 Views) dated 12/23/2016; CHEST SINGLE VIEW dated 01/31/2011; ABDOMEN ACUTE SERIES dated 07/24/2006 FINDINGS: Portable technique limits examination quality. The lungs are grossly clear. The heart is normal in size. No displaced fractures. IMPRESSION: No acute intrathoracic process suspected.
== END 2019-07-10 06:58 | disposition home or self-care (01) ==
LOC: ER 05:22
DX: J15.8 Pneumonia due to other specified bacteria (principal); R05 Cough; J01.90 Acute sinusitis, unspecified
CPT/HCPCS: 71045; 99283

== ENCOUNTER 2020-07-25 08:42 | Emergency (ER) | payer SELFPAY ==
--- OUTSIDE RECORDS SUMMARY | 2020-07-25 08:44 | XMS REPORT | Continuity of Care Document ---
:1975 Author Organization [facility] t Address [address] [place] [address] Care Team Providers Name Role Phone Unavailable Unavailable Unavailable Problems Condition Condition Condition Status Onset Resolution Last Treating Co mments Source Name Details Category Date Date Treatment Clinician Date Return to Return to [facility] Active [facility] - evaluation evaluation Me [facility] History of History of Problem Active [facility] - exhaustion exhaustion Me [facility] ent Clinics Essential Essential Diagnosis Active [facility] hypertensi hypertensi Sabi kes - on on [facility] Allergies, Adverse Reactions, Alerts This patient has no known allergies or adverse reactions. Medications Ordered Filled Start Stop Current Ordering Indication Dosage Frequency Signature Comments Components Source Medication Medication Date Date Medication? Clinician (SIG) Name Name Lisinopril Lisinopril 2018- Yes Carri [address] [facility] 0-08 [facility] - 00:00: [address] [facility] Procedures This patient has no known procedures. Encounters Start End Encounter Admission Attending Care Care Encounter Source Date/Time Date/Time Type Type Clinicians Facility Department ID 2019-06-19 2019-06-19 Outpatient Darnell Khan [id number] [facility]00[facility]00 09[facility]00 [facility] 2019-06-18 2019-06-18 Outpatient Darnell Khan [id number] [facility] 11:00:00 11:00:00 [facility] ent Clinics Results This patient has no known results.
[2020-07-25] MEDS ORDERED: MORPHINE 4 MG/ML SYR ONE (09:24)
[2020-07-25] MEDS ORDERED: ONDANSETRON 4 MG/2 ML VIAL ONE (09:24)
[2020-07-25 09:25] LABS: Absolute Lymphocytes (CBC) 1.6 K/uL (0.7-4.9); Basophils % 2.5 % (0-1.3); Hematocrit 46.7 % (39.6-49.0); Lymphocytes % 27.5 % (15.3-44.8); MPV 9.5 fL (7.6-11.3); RBC Red Blood Cell Count 5.03 M/uL (4.33-5.43)
[2020-07-25 09:32] LABS: ALT/SGPT 72 U/L (12-78); AST/SGOT 31 U/L (15-37); Albumin 3.6 g/dL (3.4-5.0); Alkaline Phosphatase 81 U/L (45-117); BUN Blood Urea Nitrogen 12 mg/dL (7-18); Bicarbonate 29 mmol/L (21-32); Bilirubin Direct 0.1 mg/dL (0-0.2); Bilirubin Total 0.7 mg/dL (0.2-1.0); Glucose Level 111 mg/dL (74-106); Lipase 97 U/L (73-393); Potassium 3.9 mmol/L (3.5-5.1); Protein, Total 7.5 g/dL (6.4-8.2); Sodium Level 140 mmol/L (136-145)
--- NOTE | 2020-07-25 09:38 | RAD REPORT ---
EXAM DESCRIPTION: RAD - Chest Single View - 07/25/2020 9:32 am CLINICAL HISTORY: right sided painto the chest and chest wall COMPARISON: Portable June 2019 TECHNIQUE: AP portable chest image was obtained 07/25/2020 9:32 am . FINDINGS: Lung markings are accentuated by shallow inspiration, large body habitus and portable tech nique. Significant failure or volume overload are doubtful. No peripheral mass or consolidation. Heart and vasculature are normal. No measurable pleural effusion and no pneumothorax. No acute bony abnormality seen. No acute aortic findings suspected. IMPRESSION: Limited portable study without acute cardiopulmonary finding.
--- NOTE | 2020-07-25 10:19 | RAD REPORT ---
EXAM DESCRIPTION: CT - Abdomen Pelvis W Contrast - 07/25/2020 9:58 am CLINICAL HISTORY: Right sided abd pain COMPARISON: <Comparisons> TECHNIQUE: Biphasic, helical CT imaging of the abdomen and pelvis was performed following 100 ml non -ionic IV contrast. No oral contrast administered. All CT scans are performed using dose optimization technique as appropriate and may include automated exposure control or mA/KV adjustment according to patient size. FINDINGS: No infiltrate, pleural effusion or pneumothorax the right lung base. Lower right ribcage s hows no abnormality. No pericardial thickening or effusion. Moderate severity diffuse fatty infiltration of the liver is present with no focal liver lesion. No p ortal vein abnormality. Pancreas and spleen show no suspicious findings. Gallbladder and biliary tree are also without suspicious finding. Gallstones can be occult on CT imaging. Symmetric renal function is seen with no hydronephrosis or suspicious renal mass. No pyelonephritis o r acute parenchymal process. No bladder abnormalities. No adrenal abnormalities. No dilated bowel loops or bowel wall thickening. No free air, free fluid or inflammatory stranding. No mass or bulky lymphadenopathy. Small bilateral fat filled inguinal hernias are present. No suspicious bony findings. IMPRESSION: Contrast enhanced CT abdomen and pelvis showing no significant or suspicious finding. No abnormality seen to explain right-sided pain pattern. No changes identified from 2018 imaging.
--- NOTE | 2020-07-25 10:35 | ER ---
Nurse's Notes [facility] Name: Tapan Jaime Jr Age: 44 yrs Sex: Male : 1975 Arrival Date: 07/25/2020 Time: 08:44 Bed 19 Private MD: Diagnosis: Upper abdominal pain, unspecified Presentation: 07/25 08:51 Chief complaint: Patient states: pain to right anterior lower rib cage that began aa5 Monday. Pt denies known injury. Coronavirus screen: Client denies travel out of the [place] in the last 14 days. At this time, the client does not indicate any symptoms associated with coronavirus-19. Risk Assessment: Do you want to hurt yourself or someone else? Patient reports no desire to harm self or others. Onset of symptoms was July 2020. 08:51 Method Of Arrival: Ambulatory aa5 08:51 Acuity: SANDEE 3 aa5 08:52 Ebola Screen: No symptoms or risks identified at this time. Initial Sepsis Screen: Does ah the patient meet any 2 criteria? No. Patient's initial sepsis screen is negative. Does the patient have a suspected source of infection? No. Patient's initial sepsis screen is negative. Historical: - Allergies: 08:52 NKDA; aa5 - PMHx: 08:52 Headaches; aa5 - PSHx: 08:52 None; aa5 - Immunization history:: Adult Immunizations unknown. - Social history:: Smoking status: Patient denies any tobacco usage or history of. - Family history:: not pertinent. - Hospitalizations: : No recent hospitalization is reported. Screenin:22 Abuse screen: Denies threats or abuse. Nutritional screening: No deficits noted. Tuberculosis screening: No symptoms or risk factors identified. Fall Risk None identified. Assessment: 09:20 General: Appears uncomfortable, Behavior is calm, cooperative, appropriate for age. Pain: Complains of pain in right upper quadrant Pain does not radiate. Pain currently is 9 out of 10 on a pain scale. Pain began 2-3 days ago. Is continuous. Neuro: Level of Consciousness is awake, alert, obeys commands, Oriented to person, place, time, situation. Cardiovascular: Heart tones S1 S2 present Capillary refill < 3 seconds Patient's skin is warm and dry. Respiratory: Airway is patent Respiratory effort is even, unlabored, Respiratory pattern is regular, symmetrical, Breath sounds are clear bilaterally. GI: Abdomen is obese, Bowel sounds present X 4 quads. Patient currently denies diarrhea, nausea, vomiting. : No signs and/or symptoms were reported regarding the genitourinary system. Derm: Skin is intact, is healthy with good turgor, Skin temperature is warm. Musculoskeletal: No signs and/or symptoms reported regarding the musculoskeletal system. 09:27 Reassessment: Radiology in room for xray. Vital Signs: 08:49 BP 138 / 111; Pulse 63; Resp 17; Temp 98.0; Pulse Ox 96% ; 08:52 Weight 136.08 kg (R); Height 6 ft. 0 in. (182.88 cm) (R); Pain 9/10; aa5 09:15 BP 141 / 83; Pulse 67; Resp 16; Pulse Ox 94% ; ah 08:52 Body Mass Index 40.69 (136.08 kg, 182.88 cm) aa ED Course: 08:44 Patient arrived in ED. as 08:48 Blaze Harris MD is Attending Physician. rn 08:48 Arm band placed on. aa 08:49 Socorro Winslow, RN is Primary Nurse. 08:52 Triage completed. aa 09:19 Initial lab(s) drawn, by wv, sent to lab. EKG done, by ED staff. Inserted saline lock: 20 gauge in right antecubital area, using aseptic technique. Blood collected. 09:22 No provider procedures requiring assistance completed. 09:26 Patient has correct armband on for positive identification. Bed in low position. Call light in reach. Side rails up X2. engine monitor on. Pulse ox on. NIBP on. Sitter at bedside. 09:32 XRAY Chest (1 view) In Process Unspecified. EDMS 09:58 CT Abd/Pelvis - IV Contrast Only In Process Unspecified. EDMS 11:18 IV discontinued, intact, bleeding controlled, No redness/swelling at site. Pressure dressing applied. Administered Medications: 09:17 Drug: morphine 4 mg Route: IVP; Site: right antecubital; 19:11 Follow up: Response: No adverse reaction 09:17 Drug: Zofran (Ondansetron) 4 mg Route: IVP; Site: right antecubital; 19:10 Follow up: Response: No adverse reaction Outcome: 10:34 Discharge ordered by . rn 10:45 Discharged to home ambulatory. 10:45 Condition: good 10:45 Discharge instructions given to patient, Instructed on discharge instructions, follow up and referral plans. Demonstrated understanding of instructions, follow-up care. 11:19 Patient left the ED. Signatures: Dispatcher [employer] Olga Fleming Roman, MD MD rn Calderon, Audri, RN RN aa5 Socorro Winslow RN RN Corrections: (The following items were deleted from the chart) 08:55 08:51 Acuity: SANDEE 4 aa5 aa5
--- NOTE | 2020-07-25 10:35 | EDPHYS ---
Physician Documentation [facility] Name: Tapan Jamie Jr Age: 44 yrs Sex: Male : 1975 Arrival Date: 07/25/2020 Time: 08:44 Bed 19 Private MD: ED Physician Blaze Harris HPI: 07/25 09:00 This 44 yrs old Male presents to ER via Ambulatory with complaints of Back rn Pain, rib pain. 09:00 The patient presents with abdominal pain in the right upper quadrant, right flank. rn Onset: The symptoms/episode began/occurred 2 day(s) ago. The symptoms do not radiate. Associated signs and symptoms: Pertinent negatives: nausea and vomiting, blood in stools, chest pain, constipation, diarrhea, dysuria, fever, hematuria, shortness of breath, vomiting, vomiting blood. The symptoms are described as intermittent, sharp, stabbing. Modifying factors: The symptoms are alleviated by nothing, the symptoms are aggravated by pressure, touching the area. Severity of pain: At its worst the pain was moderate in the emergency department the pain is unchanged. The patient has not experienced similar symptoms in the past. The patient has not recently seen a physician. Denies trauma, no fever/vomiting/diarrhea. NO blood in stool. Points to bottom right ribs. Denies cough/sob/hemoptysis. . Historical: - Allergies: 08:52 NKDA; aa5 - PMHx: 08:52 Headaches; aa5 - PSHx: 08:52 None; aa5 - Immunization history:: Adult Immunizations unknown. - Social history:: Smoking status: Patient denies any tobacco usage or history of. - Family history:: not pertinent. - Hospitalizations: : No recent hospitalization is reported. ROS: 09:00 Constitutional: Negative for fever, chills, and weight loss, Eyes: Negative for injury, rn pain, redness, and discharge, Cardiovascular: Negative for chest pain, palpitations, and edema, Respiratory: Negative for shortness of breath, cough, wheezing, and pleuritic chest pain, Abdomen/GI: + sight sided abd pain and flank pain, negative for nausea/vomiting/diarrhea Back: Negative for injury and pain, : Negative for injury, bleeding, discharge, and swelling, MS/Extremity: Negative for injury and deformity, Skin: Negative for injury, rash, and discoloration, Neuro: Negative for headache, weakness, numbness, tingling, and seizure. Exam: 09:00 Constitutional: This is a well developed, well nourished patient who is awake, alert, rn and in no acute distress. Ambulatory to room without difficulty or assistance. Head/Face: Normocephalic, atraumatic. Cardiovascular: Regular rate and rhythm. No pulse deficits. Respiratory: Speaking full sentences. No increased work of breathing, no retractions or nasal flaring. Abdomen/GI: soft, mild RUQ tenderness, no rebound, no RLQ tenderness Back: No spinal tenderness. No costovertebral tenderness. Full range of motion. Skin: Warm, dry MS/ Extremity: Pulses equal, no cyanosis. Neurovascular intact. Full, normal range of motion. Equal circumference. Neuro: Awake and alert, GCS 15, oriented to person, place, time, and situation. Cranial nerves II-XII grossly intact. Motor strength 5/5 in all extremities. Sensory grossly intact. Cerebellar exam normal. 09:25 ECG was reviewed by the Attending Physician. rn Vital Signs: 08:49 BP 138 / 111; Pulse 63; Resp 17; Temp 98.0; Pulse Ox 96% ; ah 08:52 Weight 136.08 kg (R); Height 6 ft. 0 in. (182.88 cm) (R); Pain 9/10; aa5 09:15 BP 141 / 83; Pulse 67; Resp 16; Pulse Ox 94% ; ah 08:52 Body Mass Index 40.69 (136.08 kg, 182.88 cm) aa5 MDM: 08:48 Patient medically screened. rn 10:32 Differential diagnosis: cholecystitis, Cholelithiasis, gastritis, gastroesophageal rn reflux disease, non-specific abd pain, pancreatitis, Peptic Ulcer Disease. Differential diagnosis: Ureterolithiasis. Data reviewed: vital signs, nurses notes. Counseling: I had a detailed discussion with the patient and/or guardian regarding: the historical points, exam findings, and any diagnostic results supporting the discharge/admit diagnosis, the presence of at least one elevated blood pressure reading (>120/80) during this emergency department visit, lab results, radiology results, the need for outpatient follow up, to return to the emergency department if symptoms worsen or persist or if there are any questions or concerns that arise at home. Response to treatment: the patient's symptoms have markedly improved after treatment, and as a result, I will discharge patient. Special discussion: Based on the patient's Hx, exam, and Dx evaluation, there is no indication for emergent surgery or inpatient Tx. It is understood by the patient/guardian that if the Sx's persist or worsen they need to return immediately for re-evaluation. I discussed with the patient/guardian in detail that at this point there is no indication for admission to the hospital. It is understood, however, that if the symptoms persist or worsen the patient needs to return immediately for re-evaluation. 07/25 08:56 Order name: Basic Metabolic Panel rn 07/25 08:56 Order name: CBC with Diff rn 07/25 08:56 Order name: Hepatic Function 07/25 08:56 Order name: Lipase rn 07/25 08:57 Order name: Basic Metabolic Panel; Complete Time: 10:20 EDMS 07/25 08:57 Order name: CBC with Automated Diff; Complete Time: 10:20 EDMS 07/25 08:56 Order name: IV Saline Lock; Complete Time: 09:18 rn 07/25 08:56 Order name: CT Abd/Pelvis - IV Contrast Only; Complete Time: 10:20 rn 07/25 08:56 Order name: XRAY Chest (1 view); Complete Time: 10:20 rn 07/25 08:57 Order name: Liver (Hepatic) Function; Complete Time: 10:20 EDMS 07/25 08:57 Order name: Lipase; Complete Time: 10:20 EDMS 07/25 08:59 Order name: EKG; Complete Time: 08:59 rn 07/25 08:56 Order name: Labs collected and sent; Complete Time: 09:17 rn 07/25 08:59 Order name: EKG - Nurse/Tech; Complete Time: 09:22 rn EC: Rate is 59 beats/min. Rhythm is regular. QRS [place] is Normal. IA interval is normal. QRS rn interval is normal. QT interval is normal. No Q waves. T waves are Normal. No ST changes noted. Clinical impression: Sinus bradycardia. Interpreted by me. Administered Medications: :17 Drug: morphine 4 mg Route: IVP; Site: right antecubital; 19:11 Follow up: Response: No adverse reaction 09:17 Drug: Zofran (Ondansetron) 4 mg Route: IVP; Site: right antecubital; ah 19:10 Follow up: Response: No adverse reaction ah Disposition: 07/25/20 10:34 Discharged to Home. Impression: Upper abdominal pain, unspecified. - Condition is Stable. - Discharge Instructions: Abdominal Pain, Adult, Pain Without a Known Cause. - Medication Reconciliation Form, Thank You Letter, Antibiotic Education, Prescription Opioid Use form. - Follow up: Private Physician; When: As needed; Reason: Recheck today's complaints, Re-evaluation by your physician. - Problem is new. - Symptoms have improved. Signatures: Dispatcher [employer] EDMS Blaze Harris MD MD rn Calderon, Audri, RN RN 5 Socorro Winslow RN RN Corrections: (The following items were deleted from the chart) 11:19 10:34 07/25/2020 10:34 Discharged to Home. Impression: Upper abdominal pain, ah unspecified. Condition is Stable. Forms are Medication Reconciliation Form, Thank You Letter, Antibiotic Education, Prescription Opioid Use. Follow up: Private Physician; When: As needed; Reason: Recheck today's complaints, Re-evaluation by your physician. Problem is new. Symptoms have improved. rn
[2020-07-25 11:30] VITALS: TEMP 98
[2020-07-25 11:34] VITALS: BP 141/83; O2SAT 94
--- NOTE | 2020-07-26 07:43 | EKG ---
Test Date: 2020-07-25 Test Time: 09:22:06 Basic Combatant Swimmer: PUMA MEASUREMENT RESULTS: Intervals: Rate: 59 FL: 180 QRSD: 92 QT: 416 QTc: 411 [place]: P: 59 FL: 180 QRS: 49 T: 54 INTERPRETIVE STATEMENTS: Sinus bradycardia Otherwise normal ECG Compared to ECG 01/31/2011 06:00:38 Sinus rhythm no longer present Electronically Signed On 07-26-20 07:40:43 CROSSING GATEMAN by Fernandez Tyler
== END 2020-07-25 11:19 | disposition home or self-care (01) ==
LOC: ER 08:42
DX: R10.10 Upper abdominal pain, unspecified (principal)
CPT/HCPCS: 36415; 71045; 74177; 80048; 80076; 83690; 85025; 93005; 96374; 96375; 99285; J2405; Q9967

== ENCOUNTER 2022-09-15 05:58 | Emergency (ER) | payer OTHER, SELFPAY ==
--- OUTSIDE RECORDS SUMMARY | 2022-09-15 06:01 | XMS REPORT | Continuity of Care Document ---
:1975 Author Organization [facility] t Address [address] [place] [address] Care Team Providers Name Role Phone Carri Cuevas Attending Clinician Unavailable Payers Payer Name Policy Type Policy Number Effective Date Expiration Date Lito PATE C1 [id number] [facility] Problems Condition Condition Condition Status Onset Resolution Last Treating Co mments Source Name Details Category Date Date Treatment Clinician Date [id number] Encounter Problem Active Com mon for [facility] general [facility] adult [facility] examinatio [facility] abnormal findings [id number] Essential Problem Active Comm on hypertensi [facility] on [facility] [id number] History of Problem Active Co mmon heat [facility] exhaustion [facility] Allergies, Adverse Reactions, Alerts This patient has no known allergies or adverse reactions. Social History Social Habit Start Date Stop Date Quantity Comments Source History of Tobacco Use Co mmon [facility] Sex Assigned At Com mon [facility] Smoking Status Start Date Stop Date Source Former Smoker 2020-10-05 00:00:00 2020-10-05 00:00:00 Common S pirit [facility] Medications Ordered Filled Start Stop Current Ordering Indication Dosage Frequency Signature Comments Components Source Medication Medication Date Date Medication? Clinician (SIG) Name Name Lisinopril Lisinopril 2018-09 Yes Carri 1 tablet Common 0-08 [place] [facility] 00:00: - [facility] Lisinopril Lisinopril 2018-09 No 1{table QD Lisinopril 20 MG 20 MG 0-08 t} 20 MG 00:00: 00 Vital Signs Vital Name Observation Time Observation Value Comments Source height 2020-10-05 10:40:00 72 [in_i] [facility] weight 2020-10-05 10:40:00 324.2 [lb_av] [facility] temperature 2020-10-05 10:40:00 98.4 [degF] [facility] bmi 2020-10-05 10:40:00 43.96 kg/m2 [facility] oximetry 2020-10-05 10:40:00 97 % [facility] respiratory rate 2020-10-05 10:40:00 18 /min Comm on [facility] blood pressure 2020-10-05 10:40:00 140 mm[Hg] [facility] [place] [place] systolic [facility] blood pressure 2020-10-05 10:40:00 67 mm[Hg] [facility] [place] [place] diastolic [facility] Procedures This patient has no known procedures. Encounters Start End Encounter Admission Attending Care Care Encounter Source Date/Time Date/Time Type Type Clinicians Facility Department ID 2021-10-06 [facility] [id number] Common 12:22:13 Carri [id number] [facility] 2020-10-05 2020-10-05 [id number] Common 00:00:00 00:00:00 EST AGE [facility] [id number] [facility] 2019-06-19 2019-06-19 [facility] [id number] Common 09:00:00 09:00:00 [facility] Sp[facility] it [facility] 2019-06-18 2019-06-18 [facility] [id number] Common 11:00:00 11:00:00 [facility] it [facility] Results This patient has no known results.
[2022-09-15 06:38] LABS: Absolute Lymphocytes (CBC) 1.7 K/uL (0.7-4.9); Hematocrit 44.1 % (39.6-49.0); Lymphocytes % 32.4 % (15.3-44.8); MCV 92.8 fL (80-100); MPV 8.4 fL (7.6-11.3); RBC Red Blood Cell Count 4.76 M/uL (4.33-5.43)
[2022-09-15 06:56] LABS: ALT/SGPT 37 U/L (16-61); AST/SGOT 22 U/L (15-37); Albumin 3.5 g/dL (3.4-5.0); Alkaline Phosphatase 76 U/L (45-117); BUN Blood Urea Nitrogen 19 mg/dL (7-18); Bicarbonate 28 mmol/L (21-32); Bilirubin Total 0.3 mg/dL (0.2-1.0); Glomerular Filtration Rate 112 ml/min (=/>90); Glucose Level 102 mg/dL (74-106); Potassium 3.8 mmol/L (3.5-5.1); Protein, Total 7.2 g/dL (6.4-8.2); Sodium Level 141 mmol/L (136-145); Troponin High Sensitivity 9.4 pg/mL (<58.9)
[2022-09-15 07:02] LABS: Bilirubin Direct < 0.1 mg/dL (0-0.2)
--- NOTE | 2022-09-15 07:20 | RAD REPORT ---
EXAM DESCRIPTION: CT - Head Brain Wo Cont - 09/15/2022 6:43 am CLINICAL HISTORY: Headache COMPARISON: No comparisons TECHNIQUE: All CT scans are performed using dose optimization technique as appropriate and may inclu de automated exposure control or mA/KV adjustment according to patient size. FINDINGS: No intracranial hemorrhage, hydrocephalus or extra-axial fluid collection.No areas of brai n edema or evidence of midline shift. The paranasal sinuses and mastoids are clear. The calvarium is intact. IMPRESSION: No acute intracranial abnormality.
[2022-09-15] MEDS ORDERED: KETOROLAC 30 MG/ML INJ ONE (07:52)
--- NOTE | 2022-09-15 07:59 | ER ---
Nurse's Notes [facility] Name: Tapan Jaime Jr Age: 46 yrs Sex: Male : 1975 Arrival Date: 09/15/2022 Time: 06:02 Bed 2 Private MD: Diagnosis: Headache;Essential (primary) hypertension Presentation: 09/15 06:08 Chief complaint: Patient states: headache and dizziness for weeks reports has been out kl of meds. Coronavirus screen: Vaccine status: Patient reports being unvaccinated. Ebola Screen: Patient negative for fever greater than or equal to 101.5 degrees Fahrenheit, and additional compatible Ebola Virus Disease symptoms. Initial Sepsis Screen: Does the patient meet any 2 criteria? No. Patient's initial sepsis screen is negative. Does the patient have a suspected source of infection? No. Patient's initial sepsis screen is negative. Risk Assessment: Do you want to hurt yourself or someone else? Patient reports no desire to harm self or others. 06:08 Method Of Arrival: Ambulatory kl 06:08 Acuity: SANDEE 3 kl 07:55 Onset of symptoms was September 15, 2022. Triage Assessment: 06:10 General: Appears distressed, uncomfortable, Behavior is anxious. Pain: Complains of kl pain in headache. Neuro: Level of Consciousness is awake, alert, obeys commands, Oriented to person, place, time, situation, Sweater Designer are equal bilaterally Moves all extremities. Gait is steady, Speech is normal, Facial symmetry appears normal, Pupils are PERRLA, Reports dizziness. Cardiovascular: No deficits noted. Respiratory: No deficits noted. GI: No deficits noted. No signs and/or symptoms were reported involving the gastrointestinal system. : No deficits noted. No signs and/or symptoms were reported regarding the genitourinary system. Derm: No deficits noted. No signs and/or symptoms reported regarding the dermatologic system. Historical: - Allergies: 06:09 NKDA; kl - PMHx: 06:09 Headaches; Hypertensive disorder; kl - Immunization history:: Adult Immunizations not up to date. - Social history:: Smoking status: Patient denies any tobacco usage or history of. Screenin:14 [facility] ED Fall Risk Assessment (Adult) History of falling in the last 3 months, jb4 including since admission No falls in past 3 months (0 pts) Confusion or Disorientation No (0 pts) Intoxicated or Sedated No (0 pts) Impaired Gait No (0 pts) Mobility Assist Device Used No (0 pt) Altered Elimination No (0 pt) Score/Fall Risk Level 0 - 2 = Low Risk Oriented to surroundings, Maintained a safe environment. Abuse screen: Denies threats or abuse. Nutritional screening: No deficits noted. Tuberculosis screening: No symptoms or risk factors identified. Assessment: 06:12 General: Appears in no apparent distress. uncomfortable, Behavior is calm, cooperative, jb4 appropriate for age. Pain: Complains of pain in left temporal area and right temporal area Pain does not radiate. Pain currently is 9 out of 10 on a pain scale. Quality of pain is described as throbbing. Neuro: Level of Consciousness is awake, alert, obeys commands, Oriented to person, place, time, situation, Reports dizziness, since 1 week. Cardiovascular: Patient's skin is warm and dry. Respiratory: Airway is patent Respiratory effort is even, unlabored, Respiratory pattern is regular, symmetrical. GI: : EENT: Derm: Skin is intact, Skin is pink, warm \T\ dry. Musculoskeletal: Circulation, motion, and sensation intact. Range of motion:. 08:13 Reassessment: Patient appears in no apparent distress at this time. Patient and/or ph family updated on plan of care and expected duration. Pain level reassessed. Patient is alert, oriented x 3, equal unlabored respirations, skin warm/dry/pink. Pt states that headache has improved, d/c home, provided w/ copy of lab results by ERP. Vital Signs: 06:08 BP 140 / 80; Pulse 65; Resp 18; Temp 97.3(TE); Pulse Ox 94% on R/A; Weight 122.02 kg; kl Height 6 ft. (182.88 cm); Pain 9/10; 07:40 BP 123 / 86; Pulse 58; Resp 18; Pulse Ox 99% on R/A; ph 07:54 BP 131 / 90; Pulse 57; Resp 18; Pulse Ox 98% on R/A; ph 06:08 Body Mass Index 36.48 (122.02 kg, 182.88 cm) ED Course: 06:02 Patient arrived in ED. ja2 06:07 Tala Gibbs MD is Attending Physician. sp3 06:09 Triage completed. kl 06:12 Dale Zepeda, RN is Primary Nurse. jb4 06:14 Patient has correct armband on for positive identification. Placed in gown. Bed in low jb4 position. Call light in reach. Side rails up X 1. Client placed on continuous cardiac and pulse oximetry monitoring. NIBP monitoring applied. 06:23 Initial lab(s) drawn, by pr, sent to lab. Inserted saline lock: 20 gauge in right jb4 forearm, using aseptic technique. Blood collected. 06:30 Basic Metabolic Panel Sent. jb4 06:30 CBC with Diff Sent. jb4 06:30 LFT's Sent. jb4 06:30 Troponin HS Sent. jb4 06:45 CT Head Brain wo Cont In Process Unspecified. EDMS 07:46 Attending Physician role handed off by Tala Gibbs MD ms3 07:46 Ammon Delgadillo DO is Attending Physician. ms3 07:55 Arm band placed on. ph 07:55 No provider procedures requiring assistance completed. ph 08:14 IV discontinued, intact, bleeding controlled, No redness/swelling at site. Pressure ph dressing applied. Administered Medications: 07:53 Drug: Ketorolac 30 mg Route: IVP; Site: right forearm; ph 08:14 Follow up: Response: No adverse reaction ph Medication: 07:55 VIS not applicable for this client. ph Outcome: 07:59 Discharge ordered by . ms3 08:14 Discharged to home ambulatory. ph 08:14 Condition: good 08:14 Discharge instructions given to patient, Instructed on discharge instructions, follow up and referral plans. Demonstrated understanding of instructions, follow-up care. 08:14 Patient left the ED. ph Signatures: Dispatcher [employer] Luann Botello RN RN kl Hall, Patricia, RN RN Dale Serrano RN RN jb Ammon Delgadillo DO DO ms3 Tala Gibbs MD MD sp3 Sophia Zepeda
--- NOTE | 2022-09-15 07:59 | EDPHYS ---
Physician Documentation [facility] Name: Tapan Jaime Jr Age: 46 yrs Sex: Male : 1975 Arrival Date: 09/15/2022 Time: 06:02 Bed 2 Private MD: ED Physician Ammon Delgadillo HPI: 09/15 06:17 This 46 yrs old Male presents to ER via Ambulatory with complaints of High sp3 Blood Pressure, Dizziness. 06:17 46-year-old male with history of hypertension with complaint of headache states he is sp3 out of his blood pressure medications for "months". He states that the headache has been going on for the past 2 to 3 days but got worse overnight. He denies thunderclap headache, trauma, visual changes, sensory changes, weakness or numbness, chest pain, neck pain, shortness of breath, abdominal pain, back pain, nausea, vomiting, diarrhea, syncope, near syncope, or other ROS symptoms at this time.. Historical: - Allergies: 06:09 NKDA; kl - PMHx: 06:09 Headaches; Hypertensive disorder; kl - Immunization history:: Adult Immunizations not up to date. - Social history:: Smoking status: Patient denies any tobacco usage or history of. ROS: 06:19 Constitutional: Negative for fever, chills, and weight loss, Eyes: Negative for injury, sp3 pain, redness, and discharge, ENT: Negative for injury, pain, and discharge, Neck: Negative for injury, pain, and swelling, Cardiovascular: Negative for chest pain, palpitations, and edema, Respiratory: Negative for shortness of breath, cough, wheezing, and pleuritic chest pain, Abdomen/GI: Negative for abdominal pain, nausea, vomiting, diarrhea, and constipation, Back: Negative for injury and pain, MS/Extremity: Negative for injury and deformity, Skin: Negative for injury, rash, and discoloration, Psych: Negative for depression, anxiety, suicide ideation, homicidal ideation, and hallucinations, Allergy/Immunology: Negative for hives, rash, and allergies, Endocrine: Negative for neck swelling, polydipsia, polyuria, polyphagia, and marked weight changes, Hematologic/Lymphatic: Negative for swollen nodes, abnormal bleeding, and unusual bruising. 06:19 All other systems are negative. Exam: 06:19 Constitutional: This is a well developed, well nourished patient who is awake, alert, sp3 and in no acute distress. Head/Face: Normocephalic, atraumatic. Eyes: Pupils equal round and reactive to light, extra-ocular motions intact. Lids and lashes normal. Conjunctiva and sclera are non-icteric and not injected. Cornea within normal limits. Periorbital areas with no swelling, redness, or edema. Neck: Trachea midline, no thyromegaly or masses palpated, and no cervical lymphadenopathy. Supple, full range of motion without nuchal rigidity, or vertebral point tenderness. No Meningismus. Chest/axilla: Normal chest wall appearance and motion. Nontender with no deformity. No lesions are appreciated. Cardiovascular: Regular rate and rhythm with a normal S1 and S2. No gallops, murmurs, or rubs. Normal PMI, no JVD. No pulse deficits. Respiratory: Lungs have equal breath sounds bilaterally, clear to auscultation and percussion. No rales, rhonchi or wheezes noted. No increased work of breathing, no retractions or nasal flaring. Abdomen/GI: Soft, non-tender, with normal bowel sounds. No distension or tympany. No guarding or rebound. No evidence of tenderness throughout. Back: No spinal tenderness. No costovertebral tenderness. Full range of motion. Skin: Warm, dry with normal turgor. Normal color with no rashes, no lesions, and no evidence of cellulitis. MS/ Extremity: Pulses equal, no cyanosis. Neurovascular intact. Full, normal range of motion. Neuro: Awake and alert, GCS 15, oriented to person, place, time, and situation. Cranial nerves II-XII grossly intact. Motor strength 5/5 in all extremities. Sensory grossly intact. Cerebellar exam normal. Normal gait. Psych: Awake, alert, with orientation to person, place and time. Behavior, mood, and affect are within normal limits. 06:44 ECG was reviewed by the Attending Physician. EKG demonstrates normal sinus rhythm at 60 sp3 bpm with normal intervals, normal QRS, normal axis, normal ST/T-segment without evidence of acute ischemia. Vital Signs: 06:08 BP 140 / 80; Pulse 65; Resp 18; Temp 97.3(TE); Pulse Ox 94% on R/A; Weight 122.02 kg; kl Height 6 ft. (182.88 cm); Pain 9/10; 07:40 BP 123 / 86; Pulse 58; Resp 18; Pulse Ox 99% on R/A; ph 07:54 BP 131 / 90; Pulse 57; Resp 18; Pulse Ox 98% on R/A; ph 06:08 Body Mass Index 36.48 (122.02 kg, 182.88 cm) kl MDM: 06:07 Patient medically screened. sp3 06:19 Data reviewed: vital signs, nurses notes. ED course: 6-year-old male with hypertension sp3 now with headache and being out of his medications. His blood pressure here is 140/80. Diagnosis includes tension headache, migraine headache, tension headache, ICH, functional headache, among others. Clinically have ruled out meningitis sepsis, shock, or any other problems at this time. I do not believe patient has end organ damage cardiovascularly or on her renal front. Chain CT scan of the head, laboratory values including creatinine and troponin, EKG, and general observation. No blood pressure intervention is indicated at this time. Ketorolac IV for pain control and likely discharge home if work-up is negative. This patient will be signed out to the daytime physician for final disposition.. 08:00 Data interpreted:. Counseling: I had a detailed discussion with the patient and/or ms3 guardian regarding: the historical points, exam findings, and any diagnostic results supporting the discharge/admit diagnosis, lab results, radiology results, the need for outpatient follow up. ED course: CT head reviewed by myself does not reveal intracranial hemorrhage. Labs reviewed with patient, glucose normal, creatinine normal. Troponin is negative. Patient does not meet admission criteria at this time. Discussed need to follow-up with his primary care physician with patient. Patient understands agrees with plan. All questions were answered. Return precautions discussed include worsening symptoms, or any other concerns. On reevaluation patient is alert and oriented x4, in no apparent distress, nontoxic, ambulatory in the emergency department.. 09/15 06:16 Order name: Basic Metabolic Panel; Complete Time: 07:46 sp3 09/15 06:16 Order name: CBC with Diff; Complete Time: 07:46 sp3 09/15 06:16 Order name: LFT's; Complete Time: 07:46 sp3 09/15 06:16 Order name: Troponin HS; Complete Time: 07:46 sp3 09/15 06:16 Order name: CT Head Brain wo Cont; Complete Time: 07:46 sp3 09/15 06:16 Order name: EKG; Complete Time: 06:17 sp3 09/15 06:16 Order name: Cardiac monitoring; Complete Time: 08:14 sp3 09/15 06:16 Order name: EKG - Nurse/Tech; Complete Time: 06:40 sp3 09/15 06:16 Order name: IV Saline Lock; Complete Time: 06:30 sp3 09/15 06:16 Order name: Labs collected and sent; Complete Time: 06:30 sp3 Administered Medications: 07:53 Drug: Ketorolac 30 mg Route: IVP; Site: right forearm; ph 08:14 Follow up: Response: No adverse reaction ph Disposition Summary: 09/15/22 07:59 Discharge Ordered Location: Home ms3 Condition: Stable ms3 Diagnosis - Headache ms3 - Essential (primary) hypertension ms3 Followup: ms3 - With: Private Physician - When: 2 - 3 days - Reason: Re-evaluation by your physician Discharge Instructions: - Discharge Summary Sheet ms3 - General Headache Without Cause ms3 - Hypertension, Adult ms3 Forms: - Medication Reconciliation Form ms3 - Thank You Letter ms3 - Antibiotic Education ms3 - Prescription Opioid Use ms3 Signatures: Dispatcher [employer] Luann Botello, Portia Bravo RN, RN RN ph Sims, Marcus, DO DO ms3 Tala Gibbs MD MD sp3
[2022-09-15 08:24] VITALS: TEMP 97.3
[2022-09-15 08:39] VITALS: BP 131/90; O2SAT 98
--- NOTE | 2022-09-17 17:44 | EKG ---
Test Date: 2022-09-15 Test Time: 06:38:03 [employer]ight Bro[employer] Agent: DARINEL MEASUREMENT RESULTS: Intervals: Rate: 59 VA: 160 QRSD: 92 QT: 418 QTc: 413 [place]: P: 57 VA: 160 QRS: 59 T: 58 INTERPRETIVE STATEMENTS: Sinus bradycardia Otherwise normal ECG Compared to ECG 07/25/2020 09:22:06 No significant changes Electronically Signed On 09-17-22 17:41:37 PRODUCTION RECORDER by Gulshan Orlando
== END 2022-09-15 08:14 | disposition home or self-care (01) ==
LOC: ER 05:58
DX: R51.9 Headache, unspecified (principal); I10 Essential (primary) hypertension
CPT/HCPCS: 36415; 70450; 80048; 80076; 84484; 85025; 93005; 96374; 99284